=== PATIENT | male | born 1990 | race African-American/Black ===

== ENCOUNTER 2017-10-31 17:24 | Emergency (ER) | payer SELFPAY ==
[2017-10-31] MEDS ORDERED: Acetaminophen 500 MG TAB ONE (18:13)
[2017-10-31 18:30] LABS: #Basophils 0.1 thou/uL (0.0-0.2); #Eosinphils 0.1 thou/uL (0.0-0.7); #Lymphocytes 1.4 thou/uL (1.20-3.40); #Monocytes 0.3 thou/uL (0.11-0.59); #Neutrophils 3.3 thou/uL (1.40-6.50); %Basophils 1.3 % (0.0-1.0); %Eosinophils 1.8 % (0.0-10.0); %Lymphocytes 26.5 % (21.0-51.0); %Monocytes 6.7 % (0.0-10.0); Hematocrit 42.6 % (42.0-52.0); Mean Platelet Volume 7.3 fL (7.4-10.4); Red Blood Cell (RBC) Count 4.42 mill/uL (4.70-6.10); White Blood Cell (WBC) Count 5.1 thou/uL (4.8-10.8)
[2017-10-31 18:55] LABS: Anion Gap 10 mmol/L (10-20); BUN (Urea Nitrogen) 5 mg/dL (8.9-20.6); Calc. Creatinine Clearance 0 mL/min (70-130); Calcium 9.1 mg/dL (7.8-10.44); Carbon Dioxide 25 mmol/L (22-29); Chloride 110 mmol/L (98-107); Estimated GFR-MDRD Greater than 90
[2017-10-31 18:57] LABS: Acetaminophen Less than 6.0 mcg/mL (10.0-30.0); Salicylate Less than 8.0 mg/dL (15.0-30.0)
--- NOTE | 2017-10-31 19:13 | RAD ---
CHEST TWO VIEWS: History: Altered mental status. Comparison: 10-28-14 FINDINGS: Lungs are clear. There is no pneumothorax or effusion. Cardiac silhouette and mediastinal contours ar e normal. IMPRESSION: No acute intrathoracic abnormality. POS: [id number]
== END 2017-10-31 20:42 | disposition home or self-care (01) ==
LOC: ERS 17:24
DX: R41.82 Altered mental status, unspecified (principal); R55 Syncope and collapse; J45.909 Unspecified asthma, uncomplicated; F17.210 Nicotine dependence, cigarettes, uncomplicated; Z71.6 Tobacco abuse counseling
CPT/HCPCS: 36415; 36416; 71020; 80048; 80307; 85025; 93005; 99406